=== PATIENT | male | born 1950 | race Two or more races ===

== ENCOUNTER 2023-07-10 20:50 | Emergency (ER) | payer MEDICARE, OTHER ==
[~2023-07-10] VITALS: Ht 180.3 cm; Wt 88.5 kg
[2023-07-10 21:04] VITALS: BP 134/96; TEMP 98; O2SAT 96
== END 2023-07-10 22:09 | disposition home or self-care (01) ==
LOC: ER 20:52
DX: Z04.3 Encounter for examination and observation following other accident (principal); I10 Essential (primary) hypertension; V43.52XA Car driver injured in collision with other type car in traffic accident, initial encounter; Y93.89 Activity, other specified; Y92.89 Other specified places as the place of occurrence of the external cause; Y99.8 Other external cause status